=== PATIENT | female | born 1975 | race Caucasian/White ===

== ENCOUNTER 2016-06-22 18:11 | Day surgery (SDC) | payer OTHER ==
[~2016-06-22 18:11] MED LIST: PERCOCET 5-3251 EACH PO; ZOFRAN ODT4 M1 SL
--- NOTE | 2016-06-22 18:47 | ED GI/GU/ABDOMINAL COMPLAINT ---
History of Present Illness General Chief Complaint: General Adult Stated Complaint: +N/V X 3AM, ABD PAIN Source: patient Exam Limitations: no limitations Vital Signs & Intake/Output Vital Signs & Intake/Output Vital Signs Date Time Temp Pulse Resp B/P Pulse O2 O2 Flow FiO2 Ox Delivery Rate 06/22 2025 99.5 95 20 131/70 97 Room Air 06/22 1823 97.0 112 20 129/87 Allergies Coded Allergies: NO KNOWN ALLERGIES (04/12/12) Reconcile Medications Ondansetron (Zofran Odt) 4 MG TAB.RAPDIS 1 TAB SL TID PRN NAUSEA Oxycodone HCl/Acetaminophen (Percocet 5-325 MG Tablet) 5 MG-325 MG TABLET 1-2 TAB PO Q6P PRN PAIN Triage Note: PER PT PAIN TO GALL BLADDERBUT VOMITING AND DIARRHEA ALL DAY UNKNOWN IF FEVER NO THERMOMETER, LMP 2 WEEKS AGO. Triage Nurses Notes Reviewed? yes ? N Is pt currently ? No Onset: Abrupt Duration: constant Timing: single episode today Quality/Severity: fullness, sharpness Severity Numbers: 10 Location: right upper quadrant Activities at Onset: none HPI: Patient is a 41-year-old female with a past medical history of known gallstones who presents emergency room stating that last night at approximately 4 AM patient was woken up with acute onset of sharp stabbing severe localized right upper quadrant and right flank pain. Patient states that she's had multiple episodes of nonbloody nonbilious emesis and loose watery diarrhea stool production. Patient has been unable tolerate anything by mouth. Patient states that due to not having insurance she has not followed up with a surgeon for the gallstones. Denies any onset of eating for her symptoms. Positive for chills and tactile fevers. Denies any chest pain or pain jaw pain back pain dysuria or hematuria vaginal bleeding or vaginal discharge (RAMAN LESLIE) Past History Travel History Traveled to [place] past 21 day No Medical History Any Pertinent Medical History? see below for history Neurological: NONE EENT: NONE Cardiovascular: NONE Respiratory: NONE Gastrointestinal: GALL BLADDER Hepatic: NONE Renal: NONE Musculoskeletal: NONE Psychiatric: NONE Endocrine: NONE Surgical History Surgical History: non-contributory Psychosocial History What is your primary language Mohawk Tobacco Use: Never used Family History Hx Contributory? No (RAMAN LESLIE) Review of Systems Review of Systems Constitutional: Reports: no symptoms. EENTM: Reports: no symptoms. Respiratory: Reports: no symptoms. Cardiovascular: Reports: no symptoms. GI: Reports: see HPI, abdominal pain, nausea, vomiting. Genitourinary: Reports: no symptoms. Musculoskeletal: Reports: no symptoms. Skin: Reports: no symptoms. Neurological/Psychological: Reports: no symptoms. Hematologic/Endocrine: Reports: no symptoms. Immunologic/Allergic: Reports: no symptoms. All Other Systems: Reviewed and Negative (RAMAN LESLIE) Physical Exam Physical Exam General Appearance: well developed/nourished, mild distress Gastrointestinal: normal bowel sounds, soft, MODERATE RIGHT UPPER QUADRANT PAIN UPON PALPATION, NO REBOUND TENDERNESS NO RIGHT LOWER QUADRANT PAIN NO PERITONEAL SIGNS Comments: HEENT: Normal EENT exam, extraocular motion intact, no nystagmus. Pupils equally round and reactive to light and accommodation. Nose is atraumatic. External auditory canal and Tympanic membranes clear. Pharynx normal. No swelling or edema. Neck: Supple, no lymphadenopathy, normal range of motion without pain or tenderness Back: Nontender, no CVA tenderness. Cardiovascular: Regular rate and rhythms no murmurs rubs or gallops, normal JVP Respiratory: Chest nontender. No respiratory distress.breath sounds clear to auscultation bilaterally Extremity: No edema, no calf tenderness to palpation, normal and equal pulses. Neuro: Alert oriented x3, motor sensory normal, Skin: No appreciable rash on exposed skin, skin is warm and dry. Psych: Mood and affect is normal, memory and judgment is normal. Core Measures ACS in differential dx? No Severe Sepsis Present: No Septic Shock Present: No (RAMAN LESLIE) Progress Differential Diagnosis: AAA, AMI, appendicitis, biliary colic, bowel obstruction , colon cancer, cholecystitis, diverticulitis, ectopic , endometritis, esophageal varices, gastritis, hepatitis, hernia, hemorrhoids, ischemic bowel, inflamm bowel dis, intrauterine , kidney stone, Henna-Jovanny tear, ovarian cyst, ovarian torsion, pancreatitis, PID/cervicitis, peptic ulcer, PUD/ GERD, perforated viscous, SBO, threatened AB, UTI/pyelo Plan of Care: Orders Procedure Date/time Status Nothing by Mouth 06/23 B Active CBC WITHOUT DIFFERENTIAL 06/23 599 Active BASIC ELECTROLYTES PLUS BUN&CR 06/23 599 Active Pathway - chart 06/22 2233 Active Patient Data 06/22 2233 Active Code Status 06/[address] in observation 06/22 2227 Active PARTIAL THROMBOPLASTIN TIME 06/22 2222 Complete PROTHROMBIN TIME 06/22 222 Complete TYPE & SCREEN (NOT X-MATCH) 06/22 2222 Complete Add-on Test (ER Only) 06/22 185 Active HUMAN BETA HCG SCREEN 06/22 185 Complete DIRECT BILIRUBIN 06/22 185 Complete URINALYSIS 06/22 182 Active LIPASE 06/22 182 Complete COMPREHENSIVE METABOLIC PANEL 06/22 182 Complete CBC WITHOUT DIFFERENTIAL 06/22 182 Complete AMYLASE 06/[address] in observation 06/22 UNK Active VTE Mechanical Prophylaxis 06/22 UNK Active Vital Signs 06/22 UNK Active Intake & Output 06/22 UNK Active Activity/Ambulation 06/22 UNK Active Current Medications Sig/Carmencita Start time Last Medication Dose Stop Time Status Admin Pantoprazole Sodium 40 MG DAILY 06/23 1000 AC (Protonix) Heparin Sodium 5,000 UNIT Q8 06/23 0600 AC (Porcine) Hydromorphone HCl 1 MG Q3P PRN 06/22 2245 AC (Dilaudid) Ondansetron HCl 4 MG Q6P PRN 06/22 2245 AC (Zofran) Potassium Chloride 20 MEQ .Q8H 06/22 2230 AC (KCl 20MEQ in D5/ N.S. 1000 ML bag) Dextrose/Sodium 1,000 ML Chloride (D5-Normal Saline) Laboratory Tests 06/22/16 1854: Anion Gap 19 H, Estimated GFR > 60, BUN/Creatinine Ratio 10.0, Glucose 95, Calcium 9.3, Total Bilirubin 1.0, Direct Bilirubin 0.4, AST 21, ALT 21, Alkaline Phosphatase 70, Total Protein 7.9, Albumin 4.6, Globulin 3.3, Albumin/Globulin Ratio 1.4, Amylase 69, Lipase 96, Total Beta HCG NEGATIVE, PT 10.5, INR 1.00, APTT 28, CBC w Diff NO MAN DIFF REQ, RBC 5.03, MCV 88.3, MCH 29.7, RDW 13.2, MPV 9.1, Gran % 66.9, Lymphocytes % 26.4, Monocytes % 5.9, Eosinophils % 0.4, Basophils % 0.4, Absolute Granulocytes 6.7 H, Absolute Lymphocytes 2.7, Absolute Monocytes 0.6, Absolute Eosinophils 0, Absolute Basophils 0, PUBS MCHC 33.6 Patient was given morphine with minimal relief of symptoms was a second dose was administered. Patient states that she had complete resolution of nausea. No active vomiting noted in the emergency room. Patient has initial unremarkable blood work. Ultrasound currently is pending. 06/22/2016 8:55:13 PM patient still had no relief of right upper quadrant pain with morphine and which one more dose will be administered 6 mg. The radiologist did discuss with neither concerns or ultrasonic findings of acute cholecystitis. Surgery was paged Discussed patient with surgical PA was advised patient to be placed under observation ADMISSION. (GOYO MERCER,RAMAN) Diagnostic Imaging: Viewed by Me: Ultrasound. Radiology Impression: acute abnormality Initial ED EKG: none Comments: PATIENT: BIBIANA MADISON PRESENT AGE: 41 PATIENT ACCOUNT NO: [id number] : 75 LOCATION: [facility] ORDERING PHYSICIAN: RAMAN MERCER SERVICE DATE: 06/22/16 EXAM TYPE: US - US-LIMITED ABDOMEN EXAMINATION: US ABDOMEN LIMITED CLINICAL INFORMATION: Right upper quadrant abdominal pain. Cholelithiasis. COMPARISON: None. TECHNIQUE: Real-time imaging of the right upper quadrant abdominal viscera. FINDINGS: PANCREAS: The pancreas is obscured by overlying bowel gas. LIVER: The liver demonstrates normal size, contour and echogenicity. No focal lesion or intrahepatic biliary duct dilatation. GALLBLADDER: Limited evaluation of the gallbladder secondary to gallbladder contraction. The patient reportedly ate a few hours ago. There are multiple nodular foci layering dependently within the gallbladder lumen, corresponding to multiple tiny gallstones. Echogenic bile is also identified within the gallbladder lumen. Gallbladder wall thickening was difficult to assess for given gallbladder wall contraction. The patient was reportedly tender to transducer palpation within the gallbladder region. COMMON BILE DUCT: Dilated in caliber measuring 0.7 cm in diameter. RIGHT KIDNEY: Unremarkable No hydronephrosis. No renal calculi or focal parenchymal lesions. The kidney measures 8.8 cm in maximum dimension. FREE FLUID: None. IMPRESSION: Cholelithiasis, with multiple tiny stones visualized layering dependently within the gallbladder lumen. Limited assessment for gallbladder wall thickening or pericholecystic fluid given gallbladder contraction. The electroencephalographic technologist reported a positive sonographic Bello's sign. Cholelithiasis in conjunction with a positive sonographic Bello's sign is by ultrasound, sensitive for acute cholecystitis. This critical result was discussed with Raman Holland PA-C at 8:41 PM on 06/22/2016 and it was ascertained that the content and urgency of the report was understood at the time of direct communication. (RAMAN LESLIE) Departure Departure Disposition: STILL A PATIENT Condition: Fair Clinical Impression Primary Impression: Cholecystitis Referrals: PATIENT HAS NO PRIMARY CARE DR (PCP/Family) Departure Forms: Customer Survey General Discharge Information Observation Note Spoke With: ADINA CREWS MD Physician Advisor Notified: JIMMY CHAVEZ MD Place Patient In: Non-ED OBS Care Area Rationale for Observation: My rational for observation is as follows [Adina Crews MD had advised patient to be placed in 24-hour non-ED opts for concerns of cholecystitis was patient will require surgery consultation, repeat labs, IV pain medication, nothing by mouth and possible surgical intervention for concerns of cholecystitis. Outpatient treatment at this time due to unresolved pain in the emergency room to the right upper quadrant would be medically harmful.]. (RAMAN LESLIE) PA/RADIO DISC JOCKEY Co-Sign Statement Statement: ED Attending supervision documentation- [] I saw and evaluated the patient. I have also reviewed all the pertinent lab results and diagnostic results. I agree with the findings and the plan of care as documented in the PA's/RADIO DISC JOCKEY's documentation. [X] I have reviewed the ED Record and agree with the PA's/RADIO DISC JOCKEY's documentation. [] Additions or exceptions (if any) to the PAs/RADIO DISC JOCKEY's note and plan are summarized below: [] (JIMMY CHAVEZ MD) Critical Care Note Critical Care Note Critical Care Time: 30-74 min (RAMAN LESLIE)
[2016-06-22 19:18] LABS: ABSOLUTE BASOPHIL COUNT 0 /CUMM (0.0-0.2); ABSOLUTE EOSINOPHIL COUNT 0 /CUMM (0.0-0.7); ABSOLUTE GRANULOCYTE CT 6.7 /CUMM (1.4-6.5); ABSOLUTE LYMPH COUNT 2.7 /CUMM (1.2-3.4); ABSOLUTE MONOCYTE COUNT 0.6 /CUMM (0.10-0.60); BASOPHIL % 0.4 % (0.0-2.0); EOSINOPHIL % 0.4 % (0-5); GRANULOCYTE % 66.9 % (42.2-75.2); HEMATOCRIT 44.4 % (37-47); MEAN CORPUSCULAR HGB 29.7 PG (27.0-31.0); MEAN CORPUSCULAR HGB CONC 33.6 G/DL (33.0-37.0); MEAN CORPUSCULAR VOLUME 88.3 FL (81.0-99.0); MEAN PLATELET VOLUME 9.1 FL (7.4-10.4); PLATELET COUNT 240 /CUMM (130-400); RBC DISTRIBUTION WIDTH 13.2 % (11.5-14.5); RED BLOOD CELL CT 5.03 /CUMM (4.20-5.40); WHITE BLOOD CELL COUNT 10.1 /CUMM (4.8-10.8)
--- NOTE | 2016-06-22 20:44 | ULTRASOUND REPORT ---
EXAMINATION: US ABDOMEN LIMITED CLINICAL INFORMATION: Right upper quadrant abdominal pain. Cholelithiasis. COMPARISON: None. TECHNIQUE: Real-time imaging of the right upper quadrant abdominal viscera. FINDINGS: PANCREAS: The pancreas is obscured by overlying bowel gas. LIVER: The liver demonstrates normal size, contour and echogenicity. No focal lesion or intrahepatic biliary duct dilatation. GALLBLADDER: Limited evaluation of the gallbladder secondary to gallbladder contraction. The patient reportedly ate a few hours ago. There are multiple nodular foci layering dependently within the gallbladder lumen, corresponding to multiple tiny gallstones. Echogenic bile is also identified within the gallbladder lumen. Gallbladder wall thickening was difficult to assess for given gallbladder wall contraction. The patient was reportedly tender to transducer palpation within the gallbladder region. COMMON BILE DUCT: Dilated in caliber measuring 0.7 cm in diameter. RIGHT KIDNEY: Unremarkable No hydronephrosis. No renal calculi or focal parenchymal lesions. The kidney measures 8.8 cm in maximum dimension. FREE FLUID: None. IMPRESSION: Cholelithiasis, with multiple tiny stones visualized layering dependently within the gallbladder lumen. Limited assessment for gallbladder wall thickening or pericholecystic fluid given gallbladder contraction. The special procedure technologist reported a positive sonographic Bello's sign. Cholelithiasis in conjunction with a positive sonographic Bello's sign is by ultrasound, sensitive for acute cholecystitis. This critical result was discussed with Ren Holland PA-C at 8:41 PM on 06/22/2016 and it was ascertained that the content and urgency of the report was understood at the time of direct communication.
--- NOTE | 2016-06-22 22:31 | Admission Core Measures ---
Admission Lab Results I reviewed the following labs: Laboratory Tests 06/22 1854 Chemistry Sodium (137 - 145 mmol/L) 140 Potassium (3.5 - 5.1 mmol/L) 4.1 Chloride (98 - 107 mmol/L) 101 Carbon Dioxide (22 - 30 mmol/L) 20 L Anion Gap (5 - 16) 19 H BUN (7 - 17 mg/dL) 6 L Creatinine (0.5 - 1.0 mg/dL) 0.6 Estimated GFR (>60 ml/min) > 60 BUN/Creatinine Ratio (7 - 25 %) 10.0 Glucose (65 - 99 mg/dL) 95 Calcium (8.4 - 10.2 mg/dL) 9.3 Total Bilirubin (0.2 - 1.3 mg/dL) 1.0 Direct Bilirubin (< 0.4 mg/dL) 0.4 AST (14 - 36 U/L) 21 ALT (9 - 52 U/L) 21 Alkaline Phosphatase (<127 U/L) 70 Total Protein (6.3 - 8.2 g/dL) 7.9 Albumin (3.5 - 5.0 g/dL) 4.6 Globulin (1.9 - 4.2 gm/dL) 3.3 Albumin/Globulin Ratio (1.1 - 2.2 %) 1.4 Amylase (30 - 110 U/L) 69 Lipase (23 - 300 U/L) 96 Total Beta HCG (NEGATIVE) NEGATIVE Hematology CBC w Diff NO MAN DIFF REQ WBC (4.8 - 10.8 /CUMM) 10.1 RBC (4.20 - 5.40 /CUMM) 5.03 Hgb (12.0 - 16.0 G/DL) 14.9 Hct (37 - 47 %) 44.4 MCV (81.0 - 99.0 FL) 88.3 MCH (27.0 - 31.0 PG) 29.7 RDW (11.5 - 14.5 %) 13.2 Plt Count (130 - 400 /CUMM) 240 MPV (7.4 - 10.4 FL) 9.1 Gran % (42.2 - 75.2 %) 66.9 Lymphocytes % (20.5 - 51.1 %) 26.4 Monocytes % (1.7 - 9.3 %) 5.9 Eosinophils % (0 - 5 %) 0.4 Basophils % (0.0 - 2.0 %) 0.4 Absolute Granulocytes (1.4 - 6.5 /CUMM) 6.7 H Absolute Lymphocytes (1.2 - 3.4 /CUMM) 2.7 Absolute Monocytes (0.10 - 0.60 /CUMM) 0.6 Absolute Eosinophils (0.0 - 0.7 /CUMM) 0 Absolute Basophils (0.0 - 0.2 /CUMM) 0 PUBS MCHC (33.0 - 37.0 G/DL) 33.6 Acute Coronary Syndrome Inclusion Criteria ACS Diagnosis No Inpatient Core Measures LDL Reminder: If No, please order W/I first 24hr of stay Congestive Heart Failure Inclusion Criteria CHF Diagnosis No Cerebrovascular accident Inclusion Criteria CVA/TIA Diagnosis No Inpatient Core Measures Bedside Swallow Eval Reminder: If BSE failed, place ST order Antithrombotic Reminder: Order Antithrombotic Medication by end of day 2 Antithrombotic Reminder: Document Reason Antithrombotic Not ordered by end of day 2 AFIB/Flutter Reminder: If Present, add to problem list AFIB/Flutter Reminder: Order Anticoag Medication for pts with AFIB/Flutter Atherosclerosis Reminder: If Present, add to problem list LDL Reminder: If No, please order W/I first 24hr of stay PT Order Reminder: If No, please order Venous thromboembolism Inpatient Core Measures VTE Risk Factors: Age > 40 VTE Prophylaxis Ordered Inpt Mech & Pharm No Mech VTE prophylaxis d/t No contraindications No VTE Pharm Prophylaxis d/t No contraindications Inclusion Criteria - Per Current guidelines, there needs to be overlap - treatment for the first 5 days of Warfarin therapy. - Parenteral Anticoagulation (IV or SC) needs to be - given along with Warfarin therapy. VTE Diagnosis No VTE Type NONE VTE Confirmed by (Test) NONE Problem List As ranked by this Provider includes Assessment & Plan 1. Cholecystitis HOME MEDS Home Med List Ondansetron (Zofran Odt) 4 MG TAB.RAPDIS 1 TAB SL TID PRN NAUSEA Oxycodone HCl/Acetaminophen (Percocet 5-325 MG Tablet) 5 MG-325 MG TABLET 1-2 TAB PO Q6P PRN PAIN
[2016-06-22 23:22] LABS: PT 10.5 SEC (9.4-12.5); PTT 28 SEC (25-37)
[2016-06-23 06:24] LABS: ABSOLUTE BASOPHIL COUNT 0 /CUMM (0.0-0.2); ABSOLUTE EOSINOPHIL COUNT 0 /CUMM (0.0-0.7); ABSOLUTE GRANULOCYTE CT 4.9 /CUMM (1.4-6.5); ABSOLUTE LYMPH COUNT 1.8 /CUMM (1.2-3.4); ABSOLUTE MONOCYTE COUNT 0.6 /CUMM (0.10-0.60); BASOPHIL % 0.3 % (0.0-2.0); EOSINOPHIL % 0.3 % (0-5); GRANULOCYTE % 66.5 % (42.2-75.2); MEAN CORPUSCULAR HGB CONC 34.3 G/DL (33.0-37.0); MEAN CORPUSCULAR VOLUME 87.5 FL (81.0-99.0); MEAN PLATELET VOLUME 9.2 FL (7.4-10.4); PLATELET COUNT 170 /CUMM (130-400); RED BLOOD CELL CT 4.18 /CUMM (4.20-5.40); WHITE BLOOD CELL COUNT 7.3 /CUMM (4.8-10.8)
[2016-06-23 06:29] LABS: HEMATOCRIT 36.5 % (37-47)
[2016-06-23] MEDS ORDERED: VICODIN 5-3001 EACH PO (07:53)
--- NOTE | 2016-06-23 12:19 | History & Physical Pre-Op ---
General Information and HPI History of Present Illness: CC: abdominal pain HPI: Patient is a 41-year-old nondiabetic ex smoker slightly overweight female complaining of intermittent episodic right upper quadrant pain that starts in the midepigastrium and then goes around her ribs sometimes to her back right side, yesterday it was severe stabbing constant woke up at 4 in the morning she hadn't eaten anything unusual prior to this she's vegetarian but these episodes which started probably a year and a half ago are increasing in frequency, she recently fractured her foot and needs to use crutches but she is already seen a surgeon at another facility who recommended a cholecystectomy and this was deferred until her foot got better but then she got this next episode and came to our ER. The pain is not worse with activity, there is a relation to foods ( ie. fried or cheese) = mexican fries, relieved by time, overnight pain has resolved, initially was associated with n/v, no diarrhea no fevers no particular darkening of urine (ie iced tea) or lightening / loose stools (puri), both parents had their gallbladders removed. Otherwise no changes bowel habits, weight or appetite. I've reviewed the [facility]. No history of GERD, PUD, bleeding problems, heart disease or issues with anesthesia. No prior surgery, FHx Father from leukemia Mother had breast cancer. Allergies/Medications Allergies: Coded Allergies: NO KNOWN ALLERGIES (04/12/12) Home Med list Hydrocodone/Acetaminophen (Vicodin 5-300 MG Tablet) 5 MG-300 MG TABLET 1 TAB PO Q4-6 PRN PAIN (Reported) Ondansetron (Zofran Odt) 4 MG TAB.RAPDIS 1 TAB SL TID PRN NAUSEA Oxycodone HCl/Acetaminophen (Percocet 5-325 MG Tablet) 5 MG-325 MG TABLET 1-2 TAB PO Q6P PRN PAIN Past History Medical History Neurological: NONE EENT: NONE Cardiovascular: NONE Respiratory: NONE Gastrointestinal: GALL BLADDER Hepatic: NONE Renal: NONE Musculoskeletal: NONE Psychiatric: NONE Endocrine: NONE Surgical History Pertinent Surgical History: non-contributory Review of Systems Review of Systems: Constitutional: No fever, sweats or weight loss ENMT: No sore throat Cardiovascular: No chest pain, palpitations or leg swelling Respiratory: No shortness of breath, cough, or sputum or dyspnea on exertion GI: No GERD or bleeding per rectum : No dysuria or hematuria Musculoskeletal: No new muscle weakness, bone or joint pain, has foot fracture- on crutches, no surgery Skin / Breast: No jaundice, rashes or itching Psychiatric: No history of drug abuse, but there is of alcohol, denies depression or anxiety Hematologic / lymphatic system: No problems with excessive bleeding, bruising, or blood clots Exam & Diagnostic Data Last 24 Hrs of Vital Signs/I&O I reviewed Vital Signs Date Time Temp Pulse Resp B/P Pulse O2 O2 Flow FiO2 Ox Delivery Rate 06/23 1031 98.4 77 18 134/78 97 Room Air 06/23 0810 98.7 82 18 128/67 97 Room Air 06/23 0606 99.0 87 16 131/85 98 Room Air 06/22 2026 99.5 95 20 131/70 97 Room Air 06/22 1823 97.0 112 20 129/87 I reviewed Intake & Output 06/23 1600 06/23 0800 06/23 0000 Intake Total 1000 Output Total Balance 1000 Intake, IV 1000 Patient 175 lb Weight Physical Exam: Constitutional: pleasant, no acute distress, conversant Eyes: sclera anicteric ENMT: ears and nose atraumatic, moist mucous membranes, good dentition, no lip lesions Neck: Supple, trachea is midline, no cervical or supraclavicular adenopathy and no palpable thyromegaly Cardiovascular: S1, S2, no murmurs, no peripheral edema Respiratory: clear to auscultation with normal respiratory effort and no intercostal retractions GI: abdomen soft, nontender, nondistended, no palpable hepatosplenomegaly Extremities / lymphatics: symmetrically warm, free range of motion no peripheral edema, no cervical, supraclavicular, axillary, or inguinal adenopathy Musculoskeletal: Normal gait and station, no digital cyanosis, good muscle strength and tone no atrophy, motor grossly 5 out of 5 throughout Skin: no jaundice, no rashes warm, nondiaphoretic, no areas of erythema or induration Psychiatric: mood and affect are appropriate and alert and oriented to person place and time Last 24 Hrs of Labs/Pasha: I reviewed Laboratory Tests 06/23/16 0554: Anion Gap 10, Estimated GFR > 60, BUN/Creatinine Ratio 8.3, CBC w Diff NO MAN DIFF REQ, RBC 4.18 L, MCV 87.5, MCH 30.0, RDW 13.0, MPV 9.2, Gran % 66.5, Lymphocytes % 24.4, Monocytes % 8.5, Eosinophils % 0.3, Basophils % 0.3, Absolute Granulocytes 4.9, Absolute Lymphocytes 1.8, Absolute Monocytes 0.6, Absolute Eosinophils 0, Absolute Basophils 0, PUBS MCHC 34.3 06/23/16 0309: Urine Color YEL, Urine Clarity CLDY H, Urine pH 6.5, Ur Specific [place] 1.025, Urine Protein NEG, Urine Ketones NEG, Urine Nitrite NEG, Urine Bilirubin NEG, Urine Urobilinogen 0.2, Ur Leukocyte Esterase NEG, Ur Microscopic SEDIMENT EXAMINED, Urine RBC 1-3, Urine WBC 3-5 H, Ur Epithelial Cells MANY H, Urine Hemoglobin NEG, Urine Glucose NEG 06/22/16 1854: Anion Gap 19 H, Estimated GFR > 60, BUN/Creatinine Ratio 10.0, Glucose 95, Calcium 9.3, Total Bilirubin 1.0, Direct Bilirubin 0.4, AST 21, ALT 21, Alkaline Phosphatase 70, Total Protein 7.9, Albumin 4.6, Globulin 3.3, Albumin/Globulin Ratio 1.4, Amylase 69, Lipase 96, Total Beta HCG NEGATIVE, PT 10.5, INR 1.00, APTT 28, CBC w Diff NO MAN DIFF REQ, RBC 5.03, MCV 88.3, MCH 29.7, RDW 13.2, MPV 9.1, Gran % 66.9, Lymphocytes % 26.4, Monocytes % 5.9, Eosinophils % 0.4, Basophils % 0.4, Absolute Granulocytes 6.7 H, Absolute Lymphocytes 2.7, Absolute Monocytes 0.6, Absolute Eosinophils 0, Absolute Basophils 0, PUBS MCHC 33.6 I reviewed the ultrasound from yesterday on PACs myself, shows slightly thickened gallbladder but its contracted there are stones, also examined her CT scan from 04-24-16, shows calcified stones and contracted gallbladder. There was a sonographic Bello's noted. Assessment/Plan Assessment/Plan: My impression is symptomatic gallstones. The story is typical. The current standard of care is removal of the gallbladder laparoscopically, preferably not emergently. Once they become symptomatic, gallstones can lead to complications such as cholecystitis, pancreatitis and cholangitis and rarely others, her story does not have hints of this and this time she might have cholecystitis. More workup is not needed but we will get a preoperative labs including LFTs. I explained the nature and possibility of retained stones, and rarely, persistent postoperative diarrhea. I lenora a diagram illustrating how the stones cause problems and how the anatomy and inflammation can make the surgery more difficult, sometimes requiring an open procedure, and rarely to repair a bile duct injury leading to significant morbidity and even mortality. This in our practice is exceedingly rare, but other more common risks were also discussed such as infection, injury to other surrounding structures such as bowel and blood vessels. We also discussed the potential risks, benefits and alternatives to the procedure and surgery in general, issues that included but were not limited to, anesthetic risks hemorrhage requiring transfusion, the risk of transfusion itself, infection, heart attack, stroke, . Also discussed the risks of a history of smoking on healing and general anesthesia. As Ranked By This Provider Problem List: 1. Cholecystitis 2. Biliary colic
[2016-06-23 15:21] VITALS: BP 132/75
--- NOTE | 2016-06-23 20:04 | Operative Report ---
Operative/Inv Procedure Report Surgery Date: 06/23/16 Name of Procedure: Laparoscopic cholecystectomy Pre-Operative Diagnosis: Cholecystitis Post-Operative Diagnosis: Same Estimated Blood Loss: scant Surgeon/Value Advisor: MARS MATTA,ADINA MERCER Anesthesia: general endotracheal tube Operative/Procedure Note Note: Patient was positioned supine. After successful induction of general anesthesia, the patient's abdomen was clipped, prepped and draped in the usual sterile fashion. Local anesthetic was injected at the top of the umbilicus and then a curved horizontal incision little over a centimeter was made there with a 15 blade and then deepened to the midline fascia which was incised vertically a little over a centimeter. Both sides were secured with 0 Vicryl stay sutures and then the thin peritoneal layer was entered, 10 mm Baker trocar inserted obliquely to the right, and the gas was turned on to 15 mm. After insufflation and repositioning to reverse Trendelenburg, 3 more dissecting 5 mm trochars were placed in the right subcostal area, first lateral, then mid-subcostal, then subxiphoid. The gallbladder fundus was grasped from the lateral port and retracted up over the edge of the liver and then we dissected out the area of the triangle of Calot while retracting the infundibulum caudally / laterally. First the cystic duct was identified, it was short (the common duct was really obvious), then it was isolated at the neck, clipped 3 times, divided after the second clip and then in similar fashion the cystic artery was identified medially, dissected and divided. Then the gallbladder was from the liver bed using cautery then lowered into an Endobag and removed through the umbilical incision. The instruments and then the trochars were removed letting the gas escape. The fascial incision was closed with a figure 8 Vicryl then all 4 skin incisions were closed with interrupted subcuticular 4-0 Monocryl, followed by Mastisol Steri-Strips and Bandaids. Estimated blood loss was minimal, lap and sponge counts were correct, wound expectancy was clean- contaminated, IV fluids crystalloid, complications none, patient tolerated the procedure well and was returned to the recovery room in satisfactory condition.
== END 2016-06-23 ==
LOC: ERH 18:11 → ERHI 22:28 → STS 06-23 17:52 → ERHI 06-23 19:47
PROVIDERS: Physician Assistant; Physician Assistant Surgical
DX: K80.10 Calculus of gallbladder with chronic cholecystitis without obstruction (principal); Z87.891 Personal history of nicotine dependence; S92.909A Unspecified fracture of unspecified foot, initial encounter for closed fracture
CPT/HCPCS: 81001; 81025; 82436; 88304; 96374; 96375; 96376; J0131; J0690; J1100; J1644; J2405; J2765; J7042; S5012